=== PATIENT | male | born 1945 | race African-American/Black ===

== ENCOUNTER 2021-06-10 15:10 | Observation (INO) ==
[2021-06-10 16:02] LABS: Basophils % 0.2 % (0.0-0.8); Eosinophils % 0.1 % (0.00-10.9); Hematocrit 41.6 VOL% (42.0-52.0); Hemoglobin 13.7 GM/DL (14.0-18.0); Immature Granulocytes % 0.3 %; Immature Granulocytes Absolute 0.03 #; Lymphocytes # 0.6 10*3/uL (1.4-4.0); Lymphocytes % 5.6 % (21.2-54.2); Mean Corpuscular HGB Conc 32.9 GM/DL (32-36); Mean Corpuscular Volume 100.2 FL (87-102); Mean Platelet Volume 12.9 FL (9.6-12.0); Monocytes % 7.8 % (1.7-12.7); Platelet Count 119 T/CUMM (130-400); Red Blood Count 4.15 MC/CUMM (3.8-5.5); Red Cell Distribution Width 11.8 % (9.3-17.3); White Blood Count 9.8 T/CUMM (4-12)
[2021-06-10 16:22] LABS: Albumin 3.1 G/DL (3.4-5.0); Bilirubin,Total 0.7 MG/DL (0.20-1.00); Total Protein 7.4 G/DL (6.4-8.2)
[2021-06-10] MEDS ORDERED: cefTRIAXone 1,000 MG in SODIUM CHLORIDE 0.9% 100 ML IV STA (16:28)
[2021-06-10] MEDS ORDERED: AZITHROMYCIN 250 MG TABLET PO STA (16:28)
[2021-06-10 16:31] LABS: Bacteria,Urine Moderate /HPF (Few); Bilirubin,Urine Negative (Negative); Blood, Urine Moderate mg/dL (Negative); Glucose,Urine (UA) >=500 mg/dL (Negative); Ketones,Urine 5 mg/dL (Negative); Mucus,Urine Occasional /LPF (Occasional); Nitrite,Urine Positive (Negative); Protein,Urine 30 MG/DL; RBC,Urine 4 /HPF (0-4); Squamous Epithelial Cell,Urine Occasional /HPF (0-10); Urine Appearance Slightly Hazy (Clear); Urine Color Yellow (Yellow); Urine Specific Gravity 1.017 (1.001-1.035); Urine Urobilinogen < 2.0 EU/DL (0.2-1.0)
[2021-06-10] MEDS ORDERED: GLUCAGON 1 MG VIAL IM PRN (17:04)
[2021-06-10] MEDS ORDERED: DOCUSATE SODIUM 100 MG CAPSULE PO PRN (17:04)
[2021-06-10] MEDS ORDERED: hydrALAZINE 20 MG/1 ML VIAL IV PRN (17:04)
[2021-06-10] MEDS ORDERED: DEXTROSE 50% 25 GM/50 ML VIAL IV PRN (17:04)
[2021-06-10] MEDS ORDERED: ACETAMINOPHEN 325 MG TABLET PO PRN (17:04)
[2021-06-10] MEDS ORDERED: ZALEPLON 5 MG CAPSULE PO PRN (17:04)
[2021-06-10] MEDS ORDERED: ONDANSETRON 4 MG/2 ML VIAL IV PRN (17:04)
[2021-06-10] MEDS: INSULIN LISPRO 100 UNIT/ML SUBCUT SCH ×2 (18:15→20:30)
[2021-06-10] MEDS: ALBUTEROL/IPRATROPIUM 3 ML NEB RESP TX SCH (19:48)
[2021-06-10] MEDS: INSULIN GLARGINE 100 UNIT/ML SUBCUT SCH (20:31)
[2021-06-11] MEDS: ALBUTEROL/IPRATROPIUM 3 ML NEB RESP TX SCH ×4 (00:42→19:11)
[2021-06-11 05:37] LABS: Basophils % 0.2 % (0.0-0.8); Eosinophils % 0.5 % (0.00-10.9); Hematocrit 41.5 VOL% (42.0-52.0); Hemoglobin 13.7 GM/DL (14.0-18.0); Immature Granulocytes % 0.4 %; Immature Granulocytes Absolute 0.03 #; Lymphocytes # 0.8 10*3/uL (1.4-4.0); Lymphocytes % 10.4 % (21.2-54.2); Mean Corpuscular Volume 99.5 FL (87-102); Mean Platelet Volume 12.8 FL (9.6-12.0); Monocytes % 10.9 % (1.7-12.7); Neutrophils % 77.6 % (38.7-73.9); Platelet Count 125 T/CUMM (130-400); Red Blood Count 4.17 MC/CUMM (3.8-5.5); Red Cell Distribution Width 11.8 % (9.3-17.3)
[2021-06-11 06:00] LABS: Calcium 8.9 MG/DL (8.5-10.1); Osmolality,Calculated 290.5 MOS/KG (273-304)
[2021-06-11] MEDS: PANTOPRAZOLE 40 MG TABLET PO SCH (09:00)
[2021-06-11] MEDS: INSULIN LISPRO 100 UNIT/ML SUBCUT SCH ×4 (09:00→20:55)
[2021-06-11] MEDS: AZITHROMYCIN 250 MG TABLET PO SCH (09:00)
[2021-06-11] MEDS: INSULIN GLARGINE 100 UNIT/ML SUBCUT SCH (09:00)
[2021-06-11] MEDS ORDERED: cefTRIAXone 1,000 MG in SODIUM CHLORIDE 0.9% 100 ML IV SCH (17:30)
[2021-06-12] MEDS: ALBUTEROL/IPRATROPIUM 3 ML NEB RESP TX SCH ×3 (01:07→14:22)
[2021-06-12 04:54] LABS: Basophils % 0.1 % (0.0-0.8); Eosinophils # 0.1 10*3/uL (0.0-0.87); Eosinophils % 1.8 % (0.00-10.9); Hematocrit 42.3 VOL% (42.0-52.0); Hemoglobin 14.1 GM/DL (14.0-18.0); Immature Granulocytes % 0.4 %; Immature Granulocytes Absolute 0.03 #; Lymphocytes # 1.1 10*3/uL (1.4-4.0); Lymphocytes % 14.8 % (21.2-54.2); Mean Corpuscular HGB Conc 33.3 GM/DL (32-36); Mean Corpuscular Volume 99.1 FL (87-102); Mean Platelet Volume 12.7 FL (9.6-12.0); Monocytes % 20.2 % (1.7-12.7); Neutrophils % 62.7 % (38.7-73.9); Platelet Count 121 T/CUMM (130-400); Red Blood Count 4.27 MC/CUMM (3.8-5.5); Red Cell Distribution Width 11.9 % (9.3-17.3); White Blood Count 7.6 T/CUMM (4-12)
[2021-06-12 05:16] LABS: Calcium 8.5 MG/DL (8.5-10.1); Eosinophils 1 % (0-10); Lymphocytes 8 % (20-55); Osmolality,Calculated 288.5 MOS/KG (273-304); Platelet Estimate Normal; Segmented Neutrophils 68 % (50-85); Total Cells Counted 100
[2021-06-12] MEDS: INSULIN GLARGINE 100 UNIT/ML SUBCUT SCH (09:24)
[2021-06-12] MEDS: PANTOPRAZOLE 40 MG TABLET PO SCH (09:24)
[2021-06-12] MEDS: INSULIN LISPRO 100 UNIT/ML SUBCUT SCH ×2 (09:24→13:28)
[2021-06-12] MEDS: AZITHROMYCIN 250 MG TABLET PO SCH (09:24)
[2021-06-12 11:55] VITALS: BP 133/69
== END 2021-06-12 16:18 | disposition home or self-care (01) ==
LOC: N.EDINP 15:10 → N.ED 15:10 → SUATTDRO 17:04 → N.3E 17:49 → SUATTDRO 18:21 → N.3E 18:25
PROVIDERS: ADMIT Internal Medicine; ATTEND Internal Medicine